=== PATIENT | female | born 1935 | race Caucasian/White ===

== ENCOUNTER 2017-10-06 15:32 | Emergency (ER) | payer SELFPAY, OTHER ==
[2017-10-06] MEDS: LIDOCAINE 1%/EPI 30 ML INJ INJ (17:00)
== END 2017-10-06 19:00 | disposition home or self-care (01) ==
LOC: E/R 15:32
DX: S81.812A Laceration without foreign body, left lower leg, initial encounter (principal); E03.9 Hypothyroidism, unspecified; E11.9 Type 2 diabetes mellitus without complications; W01.198A Fall on same level from slipping, tripping and stumbling with subsequent striking against other object, initial encounter; Y92.002 Bathroom of unspecified non-institutional (private) residence as the place of occurrence of the external cause
CPT/HCPCS: 12004; 73590; 99283-25